=== PATIENT | male | born 1995 | race Caucasian/White ===

== ENCOUNTER 2017-12-10 18:29 | Emergency (ER) | payer OTHER ==
[~2017-12-10] VITALS: Ht 180.3 cm; Wt 89.4 kg
[2017-12-10 18:45] VITALS: TEMP 36.7; Ht 180.3 cm; Wt 89.4 kg
--- NOTE | 2017-12-10 19:43 | DIAGNOSTIC IMAGING REPORT ---
L SHOULDER MIN 2 VIEWS ROUTINE CLINICAL HISTORY: 22 years-old Male presenting with left shoulder pain, injury. TECHNIQUE: Internal rotation, external rotation, Grashey views of the left shoulder were obtained. COMPARISON: None. FINDINGS: Glenohumeral and acromioclavicular joints congruent. No acute fracture or malalignment. No advanced degenerative change. No radiographic soft tissue abnormality. IMPRESSION: No acute osseous injury. Electronically signed by: Ricky Lewis M.D. 12/10/2017 7:42 PM Dictated Date/Time: 12/10/2017 7:41 PM
--- NOTE | 2017-12-10 20:29 | EMERGENCY ROOM VISIT NOTE ---
History First contact with patient: 18:47 Chief Complaint: SHOULDER PAIN Stated Complaint: LT SHOULDER INJURY History of Present Illness The patient is a 22 year old male who presents to the Emergency Room with complaints of left shoulder pain. The patient states that he was playing softball and dove for a ball, landing onto his left shoulder with his arm tucked under him. The injury occurred approximately 1 hour ago. He reports pain in the left shoulder. The pain as a dull pain at rest and he rates his discomfort a 5/10. He states that with any movement of the arm, the pain increases to a 10/10 and becomes sharp. He has not taken any medication or applied ice for his pain. He denies any numbness or weakness. He denies any injuries to the elbow or wrist. He denies chest pain or shortness of breath. He denies any history of injuries to this shoulder. Review of Systems A complete 6 point review of systems was reviewed with the patient with pertinent positives and negatives as per history of present illness. All else were negative. Past Medical/Surgical History Medical Problems: (1) No significant active problems Social History Smoking Status: Never Smoker Alcohol Use: occasionally Drug Use: none Marital Status: in relationship Occupation Status: [employer] student Current/Historical Medications No Active Prescriptions or Reported Meds Physical Exam Vital Signs Date Time Temp Pulse Resp B/P (MAP) Pulse Ox O2 Delivery O2 Flow Rate FiO2 12/10/17 20:40 65 18 135/69 99 12/10/17 18:45 36.7 70 18 148/88 99 Room Air Physical Exam VITALS: Vitals are noted on the nurse's note and reviewed by myself. Vital signs stable. GENERAL: This is a 22-year-old male, in no acute distress, nondiaphoretic, well- developed well-nourished. SKIN: No erythema, ecchymosis, abrasions or lacerations. HEART: Regular rate and rhythm without murmurs gallops or rubs. LUNGS: Clear to auscultation bilaterally without wheezes, rales or rhonchi. MUSCULOSKELETAL: No gross deformity of the left shoulder. There is tenderness to palpation over the anterior aspect of the proximal humerus and the AC joint. Full range of motion of the left shoulder, although patient reports subjective pain. NEURO: Patient was alert and oriented to person place and time. Normal sensation to light and sharp touch. Medical Decision & Procedures ER Provider Diagnostic Interpretation: L SHOULDER MIN 2 VIEWS ROUTINE FINDINGS: Glenohumeral and acromioclavicular joints congruent. No acute fracture or malalignment. No advanced degenerative change. No radiographic soft tissue abnormality. IMPRESSION: No acute osseous injury. L CLAVICLE FINDINGS: Acromioclavicular joint congruent. No AC joint widening. No acute fracture or malalignment. No advanced degenerative change. No radiographic soft tissue abnormality. IMPRESSION: No acute osseous injury. Medical Decision Differential diagnosis includes humerus fracture, shoulder dislocation, clavicle fracture, AC separation, rotator cuff injury, contusion, among others. The patient was evaluated as above. X-rays of the left shoulder and clavicle were obtained and read by radiology with no acute findings. Patient was placed in an arm sling and conservative measures were discussed. He was advised to follow-up with orthopedics for further evaluation of his shoulder pain. He verbalized understanding of my assessment and treatment plan and was discharged home in good condition. Medication Reconcilliation Current Medication List: was personally reviewed by me Blood Pressure Screening Patient's blood pressure: Normal blood pressure Impression Primary Impression: Injury of left shoulder Departure Information Dispostion Home / Self-Care Condition GOOD Prescriptions No Active Prescriptions or Reported Meds Referrals [facility] (PCP) Obdulio Richardson MD Patient Instructions My [facility] Additional Instructions You have been treated in the Emergency Department for a shoulder injury. For pain control, you can use the following [id number] medicines (if >12 yo): - Regular strength (325mg/tab) Tylenol (acetaminophen) 2 tabs every 4-6 hours as needed. Do not exceed 12 tablets in a 24 hour period. Avoid taking more than 4 grams (4000 mg) of Tylenol per day. This includes any other sources of acetaminophen you may take on a regular basis. - Regular strength (200 mg/tab) Advil (ibuprofen) 3 tabs every 6 hours as needed. Do not exceed a dose of 3200 mg per day. This will also help to reduce inflammation. If this is a recent injury (<24 hrs), ice can be applied to the area of pain for the first 3 days to help decrease pain and inflammation. You have been provided the number for an Orthopaedic Surgeon. You should call this number as soon as possible to establish a follow-up visit from today's Emergency Department visit. Walk-in visits at [facility] are available from 5pm - 7pm Thursday through Thursday at their Extended [facility] in [facility]. Wear the sling until further directed by orthopedics. While wearing the sling, you should take it off a few times per day to perform range of motion exercises to prevent stiffness in the shoulder. Return to the Emergency Department if your current symptoms worsen despite treatment course outlined above, or if you develop any of the following symptoms : intractable pain despite aforementioned treatment course or new onset of numbness or tingling of the arm. Problem Qualifiers Primary Impression: Injury of left shoulder Encounter type: initial encounter Qualified Codes: S49.92XA - Unspecified injury of left shoulder and upper arm, initial encounter
--- NOTE | 2017-12-10 20:32 | DIAGNOSTIC IMAGING REPORT ---
L CLAVICLE CLINICAL HISTORY: 22 years-old Male presenting with left shoulder/clavicle pain. TECHNIQUE: Frontal and apical lordotic views of the left clavicle were obtained. COMPARISON: None. FINDINGS: Acromioclavicular joint congruent. No AC joint widening. No acute fracture or malalignment. No advanced degenerative change. No radiographic soft tissue abnormality. IMPRESSION: No acute osseous injury. Electronically signed by: Ricky Lewis M.D. 12/10/2017 8:31 PM Dictated Date/Time: 12/10/2017 8:30 PM
[2017-12-10 20:40] VITALS: BP 135/69; PULSE 65; O2SAT 99
== END 2017-12-10 20:41 | disposition home or self-care (01) ==
LOC: C.EDB 18:30 → C.EDD 20:41
DX: S49.92XA Unspecified injury of left shoulder and upper arm, initial encounter (principal); W19.XXXA Unspecified fall, initial encounter; Y92.89 Other specified places as the place of occurrence of the external cause; Y93.64 Activity, baseball